=== PATIENT | male | born 1995 | race Caucasian/White ===

== ENCOUNTER 2023-08-16 10:58 | Emergency (ER) | payer OTHER, SELFPAY ==
--- NOTE | ~2023-08-16 | XR_ITS ---
EXAMINATION: XR ankle RT min 3V, XR foot RT min 3V DATE: 08/16/2023 11:24 INDICATION: Post traumatic lateral right foot and ankle pain and swelling TECHNIQUE: 1. Anteroposterior, mortise, additional oblique and lateral view of the right ankle were obtained. 2. Dorsoplantar, two oblique and lateral views of the right foot were obtained. COMPARISON: None. FINDINGS: There is flattening of Boehler's angle with comminuted joint depression type calcaneal fracture. Alig nment appears otherwise normal throughout the right foot and ankle. No other fractures identified. Ot herwise normal joint spaces throughout the right foot and ankle. Lateral side predominant soft tissue swelling about the right ankle and hindfoot. IMPRESSION: 1. Comminuted joint depression type fracture of the right calcaneus. Reviewed, dictated and finalized at location A. IMPRESSION: 1. Comminuted joint depression type fracture of the right calcaneus.
[2023-08-16 11:00] VITALS: BP 144/90; PULSE 115; RESP 16; TEMP 36.4; O2SAT 98
--- NOTE | 2023-08-16 11:05 | ED.LOWEXIN ---
HPI - Extremity Injury (Lower) General Chief Complaint: Extremity Injury, Lower Stated Complaint: right foot injury Time Seen by Provider: 08/16/23 11:04 Source: patient Mode of arrival: ambulatory Limitations: no limitations History of Present Illness HPI Narrative: Gopi is a 28-year-old male patient presenting to the ER today with complaints of right ankle and foot pain after jumping off a ledge that was about 4-5 foot tall. States he landed flat footed however he is having pain to the ankle and foot. Rates the pain currently a 7/10 states his burning and sharp. Pain is constant. He is having difficulty walking due to pain Related Data Allergies Allergy/AdvReac Type Severity Reaction Status Date / Time No Known Drug Allergies Allergy Unknown Unknown Verified 08/16/23 10:59 Review of Systems Review of Systems: Pertinent positives per HPI. Patient denies any fever, chills, rash, headache, visual changes, dizziness, cough, runny nose, sore throat, shortness of breath, chest pain, palpitations, nausea, vomiting, diarrhea, constipation, abdominal pain, or any urinary issues. PMFSH Comments At the time of my signature, I reviewed and agree with the nursing past medical, surgical, social, and family history. There is no relevant family history pertinent to the patient complaint. Exam Narrative: General: Well-developed, well nourished, in no apparent distress Head: Normocephalic, atraumatic. Cardio: Regular rate and rhythm, s1 and s2 normal, no murmur appreciated. Resp: Clear to auscultation bilaterally, no rhonchi, rales, wheezing or rubs. Musculoskeletal: No deformity, tender to palpation over the medial, lateral, and anterior ankle, tender to palpation over the medial, lateral, and anterior foot, tender to palpation over the calcaneus, limited range of motion due to pain, nontender to palpation of the lumbar spine or paraspinous musculature, muscle strength strong and equal, peripheral pulse strong, no edema, no cyanosis, normal gait and station Course Course Emergency Course: Portions of this record may have been created with voice recognition software. Vital Signs Vital signs: Vital Signs Temperature 36.4 C 08/16/23 11:00 Pulse Rate 115 H 08/16/23 11:00 Respiratory Rate 16 08/16/23 11:00 Blood Pressure 144/90 H 08/16/23 11:00 Pulse Oximetry 98 08/16/23 11:00 Oxygen Delivery Room Air 08/16/23 11:00 Temperature 36.7 C 08/16/23 13:19 Pulse Rate 100 08/16/23 13:19 Respiratory Rate 16 08/16/23 13:19 Blood Pressure 147/99 H 08/16/23 13:19 Pulse Oximetry 97 08/16/23 13:19 Oxygen Delivery Room Air 08/16/23 11:00 Vital signs reviewed MDM - Extremity Injury (Lower) MDM Narrative Medical decision making narrative: At the time of visit patient is resting comfortably on the exam table. Patient appears to be nontoxic. Diagnostics: X-rays of right ankle and foot was performed and shows 1. Comminuted joint depression type fracture of the right calcaneus. Medications given: 7.5/325 in [place] given Plan: Posterior OCL with a lot of padding added to the heel, prescription for hydrocodone was sent to the pharmacy. Crutches were given. Orthopedic referral was given to Dr. Carbone. Supportive measures were discussed with the patient and they voiced understanding discharge instructions and agrees to treatment plan. Return precautions reviewed Differential Diagnosis Differential diagnosis: Likely ankle sprain and strain, ankle fracture and other (Calcaneal fracture) Imaging Data Radiologist's impression: ITS Impressions Ankle X-Ray 08/16/23 11:47 IMPRESSION: 1. Comminuted joint depression type fracture of the right calcaneus. Foot X-Ray 08/16/23 11:47 IMPRESSION: 1. Comminuted joint depression type fracture of the right calcaneus. Discharge Plan Discharge Clinical Impression: Fracture of calcaneus, right, closed Qualifiers: Encounter
--- NOTE | 2023-08-16 12:26 | PC.NURSE ---
Pt requesting pain medication. Provider made aware.
[2023-08-16] MEDS: HYDROcodone/acetaminophen (*CRX) 7.5-325 MG TABLET 1 TAB PO (12:49)
[2023-08-16 13:19] VITALS: BP 147/99; PULSE 100; RESP 16; TEMP 36.7; O2SAT 97
== END 2023-08-16 13:32 | disposition home or self-care (01) ==
PROVIDERS: Emergency Provider Nurse Practitioner Family
DX: S92.001A Unspecified fracture of right calcaneus, initial encounter for closed fracture (principal); W17.89XA Other fall from one level to another, initial encounter
CPT/HCPCS: 29515; 73610; 73630; 99284; A9270

== ENCOUNTER 2023-08-21 15:56 | Outpatient (CLI) | payer OTHER, SELFPAY ==
--- NOTE | ~2023-08-21 | CT_ITS ---
EXAMINATION: CT foot RT wo con DATE: 08/21/2023 16:08 INDICATION: Unspecified fracture of right calcaneus. TECHNIQUE: Computed tomography (CT) of the right foot was performed without intravenous contrast. Aut omated exposure control and iterative reconstruction technique were employed. The dose-length product was 306.92 mGy-cm. COMPARISON: Right foot radiographs 08/16/2023 FINDINGS: There is a comminuted fracture of calcaneus with involvement of the posterior subtalar join t and calcaneocuboid joint. A fracture fragment involving the posterior facet laterally demonstrates anterior and medial rotation of the articular surface, depression, and lateral displacement. There is a fracture of the dorsal proximal margin of cuboid. The talar dome is normal. IMPRESSION: 1. Comminuted joint-depression fracture of calcaneus. 2. Impaction fracture of dorsal proximal margin of cuboid. Reviewed, dictated and finalized at location E.
== END 2023-08-21 15:57 ==
LOC: GOSHIMG 15:57
PROVIDERS: PCP Orthopaedic Surgery; Visit Provider Orthopaedic Surgery
DX: S92.001A Unspecified fracture of right calcaneus, initial encounter for closed fracture (principal); S92.211A Displaced fracture of cuboid bone of right foot, initial encounter for closed fracture; X58.XXXA Exposure to other specified factors, initial encounter
CPT/HCPCS: 73700

== ENCOUNTER 2023-08-28 01:32 | Day surgery (SDC) | payer OTHER, SELFPAY ==
[2023-08-24 15:28] VITALS: BMI 34.0
--- NOTE | 2023-08-24 15:31 | PC.NURSE ---
Report to the Outpatient Waiting Room, entrance under the green pavilion located off [facility], at time 0930 on date 08/28/23. Planned Procedure Time: 1130. Time changes happen often and if your time is changed the preop area will call you the afternoon before. - You and your visitor will be asked to self-screen and do not enter if you have any COVID symptoms. - A mask is optional within the hospital at this time. Patients may have clear liquids (water, carbonated beverages, clear teas, apple juice) until 3 hours prior to surgery with a maximum of 20 ounces. - No food from midnight until time of surgery Take the following medications with a SIP of water the morning of surgery: TYLENOL IF NEEDED DO NOT STOP ANY OF YOUR OTHER PRESCRIPTION MEDICATIONS PRIOR TO SURGERY ?EXCEPT THE FOLLOWING Medications to discontinue per physician: N/A Date to take last dose: N/A Please no make-up, nail tuvaluan, hairspray, perfume, deodorant, or body powder the day of surgery. No jewelry (including any body piercings) or valuables the day of surgery, leave them at home. Please take a shower or bath the night before, or the morning of, surgery with an antibacterial soap. Wear comfortable, loose fitting clothing. - Jewelry must be removed prior to entering the operating room. Rings and piercings that are not removed may be cut off. - The hospital will not accept responsibility for valuables. - Please leave all valuables, including medications, at home the day of surgery. If you are going home after surgery, a licensed wheat combine driver must drive you home. - NO public transportation without another adult if you receive anesthesia. - We recommend that an adult stay with you for 24 hours following discharge. - We also recommend that you do not drive, make important decision, drink alcoholic beverages, or take any drugs that were not prescribed by your health care provider for at least 24 hours after your discharge time. Follow any additional instructions given to you from your surgeon. If you or anyone in your household have experienced Covid symptoms in the past week, please notify your surgeon or the nurse liaison at the phone number below for possible testing. Telephone instructions given to PT - TACHO and asked if any additional questions and then verbalized understanding. Patient advised to call surgeon office or pre surgery nurse liaison [phone] if any additional questions.
[2023-08-28] VITALS (8 sets, daily range): BP systolic 120–138; BP diastolic 78–96; PULSE 67–86; RESP 14–22; TEMP 36.2–36.8; O2SAT 95–100
--- NOTE | ~2023-08-28 | XR_ITS ---
XR surgery orthopedic Indication: ORIF right calcaneal fracture TECHNIQUE: Fluoroscopy used during ORIF right calcaneal fracture performed by [Adams Garcia JR MD] on 08/28/2023. 44 seconds with 2 fluoroscopic images captured. FINDINGS: Correlate with procedure note. IMPRESSION: Fluoroscopy used during ORIF right calcaneal fracture. Reviewed, dictated and finalized at location B.
--- NOTE | 2023-08-28 07:12 | WPDHPUPDATE1 ---
History and Physical Update Update Date/Time: 08/28/23 07:12 History and Physical has been reviewed, including an updated exam of the patient. There are NO changes in the patient's condition. Risks, benefits, and alternatives have been discussed and questions answered. Patient agrees to proceed with procedure.
[2023-08-28] MEDS: LACTATED RINGERS 1,000 ML 30 ML IV CONT ×2 (10:15→13:45)
--- NOTE | 2023-08-28 10:31 | P.PNAN_ITS ---
Anes - Initial Pre Proc Eval Procedure: Operation Date: 08/28/23 11:30 Proposed Procedures p Open Reduction Internal Fixation of Calcaneal Fracture Right Foot - Adams Garcia JR, MD Date/Time: 08/28/23 10:31 Surgeon: Adams Garcia JR, MD Pre Op Diagnosis: Calcaneal Fx Rt Foot Patient Data Age: 28 Gender: M Height: 1.77 m Weight: 107.5 kg Last Vital Signs Temp 36.8 C 08/28/23 09:15 Pulse 80 08/28/23 09:15 Resp 16 08/28/23 09:15 BP 137/80 08/28/23 09:15 Pulse Ox 98 08/28/23 09:15 O2 Del Method Room Air 08/28/23 09:15 Allergies Allergy/AdvReac Type Severity Reaction Status Date / Time No Known Drug Allergies Allergy Unknown Unknown Verified 08/24/23 15:26 Home Medications Medication Instructions Recorded Confirmed Type acetaminophen 500 mg tablet 1,000 mg PO QID PRN Pain 08/24/23 08/28/23 History Patient hx anesthesia problems: none Family hx anesthesia problems: none Results Review: All pre-operative results and documents have been reviewed as part of the pre- operative evaluation. [facility] Surgical History Surgical History History of appendectomy 10/2022 Social History Social History Smoking status: Current every day smoker Tobacco type: e-cigarettes/vaping Alcohol intake: current Drinks per week: 12 Alcohol use details: occasionally Substance use: current Substance use type: marijuana Do You Feel Safe in your Home?: Yes Lack of Transportation: No Lack of Food: Never True Current Housing: I Have Housing Concerned About Future Housing: No Difficulty Paying Gas/Electric Bills: No Difficulty Paying for Meds: No Currently Unemployed: No Education: High School Diploma/GED Difficulty w/ Childcare or Family Care: No Living arrangements: alone Occupation/Education: occupation 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 Informed Consent: The patient's anesthetic plan and its attendant risks and benefits were discussed with the patient/family/POA. Questions were solicited and answers provided to the satisfaction of the patient/family/POA.
--- NOTE | 2023-08-28 11:07 | WPDANESPNB ---
Anes - Peripheral Nerve Block Date/Time: 08/28/23 11:07 I have discussed with the patient/family/POA the placement of a peripheral nerve block for post-operative pain management, including associated risks, benefits, complications, and side effects. Alternative methods of post-operative analgesia were detailed. Questions were solicited and answers provided to the satisfaction of the patient/family/POA. Time-Out: A pre-procedural Time-Out was completed immediately before starting the procedure and confirmed: Patient Identification, Site, Procedure, Patient Position and the Availability of Requisite Equipment. Clinical Indications: Acute post-operative pain management requested by the operative surgeon. Nerve Block Insertion Note Anes-nerve block: posterior fossa sciatic right and other (Saphenous right) Patient position: supine Skin prep: chlorhexidine Needle: 22 gauge, stimulating, insulated echogenic needle. Needle length: 80 mm Technique: nerve stimulation lost at (mA) Technique comment: mid 2mg [id number] Injectate: bupivacaine 0.5% with epi 5 mcg/ml (20/10ml no epi) and dexamethasone (mg) (4) Observations: tolerated well Complications: none Procedure start time:: 1059 Procedure end time:: 1105
[2023-08-28] MEDS: ceFAZolin 2 GM/D5W 50 ML 2 GM/50 ML BAG IVPB (11:16)
[2023-08-28] MEDS: fentaNYL CITRATE INJ (*CRX) 100 MCG/2 ML VIAL 25 MCG IV PUSH ×3 (14:16→14:40)
--- NOTE | 2023-08-28 14:33 | W.PM.PROC2 ---
Procedure Note - Detailed Date of Procedure 08/28/23 Pre-op Diagnosis Calcaneal Fracture Right Foot Post-op Diagnosis Same Procedure Performed Open Reduction with internal Fixation of calcaneal fracture right foot Surgeon Adams Garcia JR, DPM Anesthesia General and Regional Indications Joint depression calcaneal fracture with shortening and varus malposition of the tuber of the calcaneus. Description of Procedure Description of Procedure PROCEDURE IN DETAIL:? Under mild sedation, the patient was brought into the operating room, placed on the operating table in the lateral decubitus position.? A pneumatic thigh tourniquet was placed about the patient's ipsilateral limb.? Following general anesthesia and a popliteal fossa block the foot was then scrubbed, prepped, and draped in the usual aseptic manner.? An Esmarch bandage was then used to exsanguinate the patient's? foot and the pneumatic thigh tourniquet was then inflated to 350mmHg. ? Surgery began in the following manner:? Attention was directed to the lateral aspect of the calcaneus where an L shaped incision was made parallel to the Achilles tendo and along the inferior aspect of the calcaneus. A full thickness flap was used to expose the lateral aspect of the calcaneus. The incision was continued deep down through the subcutaneous tissues using sharp and blunt dissection.? All bleeders ligated and cauterized as necessary. I held the flap of tissue retracted with 0.062 smooth K-wires driven into the fibula and lateral talus. Next a 1cm incision was made along the posterior inferior calcaneus and Shanz pin was driven from posterior to anterior into the tuber of the calcaneus. Next the lateral wall blowout was freed from the lateral calcaneus and placed in sterile saline. The Shanz pin was used to reduce the varus calcaneus and restore length. Next a K wire was driven through the calcaneus into the talus. This exposed the posterior facet of the subtalar joint which was fragmented and depressed. It was elevated with a periosteal elevator stabilized with a K wire and the Arthrex Bone sync fast Setting Calcium Phosphate Cement was injected into the void. Next, the lateral wall of the calcaneus was repositioned in its original position and an Arthrex size Medium Calcaneal Perimeter plate was placed along the Lateral calcaneus. Utilizing a 3.5mm Kreulock screw the constant fragment was stabilzed and an Axial Calcaneal view was used to the make sure that good position of the screw was achieved as well as some compression of the fracture line. Next the plate was secured to the calcaneus with ten 3.5 Arthrex Locking screws driven from lateral to medial. A lateral view of the foot showed good positioning of the plates and screws and presybeterian of the calceanal axial view and reduction of the short varus malalignment of the calcaneus. The Shanz pin and 0.062 retraction wires were removed. The wound site was flushed with copious amounts of sterile saline. The stab incision was closed with 2.0 prolene. ? Next, the subcutaneous structured were reapproximated and utilizing 3-0 Vicryl.? Next, the skin was reapproximated and coapted utilizing 4-0 Ethilon suture in simple interrupted suture fashion technique. I externally rotated the limb in order to expose the dorsum of the midfoot. Attention was then directed to the dorsal aspect of the base of the first metatarsal. I made a linear incision just medial to the extensor hallucis longus tendon. Next, I made a capsulotomy and periosteal incision over the base of the first metatarsal and the first metatarsal cuneiform joint. I exposed the base of the first metatarsal, marker was used to [place] the are 2.0cm distal to the first metatarsal cuneiform joint. At this point I made an osteotomy along the dorsal aspect of the base of the first metatarsal perpendicular to the long axis of the first metatarsal and a second oblique cut to resect a 3mm wedge from the dorsal aspect of th
[2023-08-28] MEDS: oxyCODONE HCL (*CRX) 5 MG TAB IR PO (15:17)
== END 2023-08-28 16:00 | disposition home or self-care (01) ==
PROVIDERS: PCP Family Medicine; Visit Provider Podiatrist Foot & Ankle Surgery
PROC: (CPT 28415; principal; 2023-08-28 11:30)
DX: S92.001A Unspecified fracture of right calcaneus, initial encounter for closed fracture (principal); X50.0XXA Overexertion from strenuous movement or load, initial encounter; G89.18 Other acute postprocedural pain; F17.290 Nicotine dependence, other tobacco product, uncomplicated; F12.90 Cannabis use, unspecified, uncomplicated; E66.9 Obesity, unspecified; Z68.34 Body mass index [BMI] 34.0-34.9, adult
CPT/HCPCS: 28415; 64450; 64445; 99199; A9270; J0690; J1100; J2250; J2405; J2704; J3010; J7120

== ENCOUNTER 2024-02-02 05:21 | Emergency (ER) | payer SELFPAY ==
--- NOTE | ~2024-02-02 | US_ITS ---
Limited Abdominal Sonogram: Real-time sonographic imaging of the right upper quadrant was performed. Clinical History: Right upper quadrant pain Findings: The liver appears normal with no evidence of mass lesion or bile duct dilatation. Main por dena vein demonstrates normal direction of flow. The gallbladder is well distended, and measures an ec hogenic shadowing gallstone near the gallbladder neck. No gallbladder wall thickening. The common chucho e duct measures 4 mm. The visualized pancreas, aorta, and IVC are unremarkable. Impression: Cholelithiasis. Reviewed, dictated and finalized at location M. Impression: Cholelithiasis.
--- NOTE | ~2024-02-02 | CT_ITS ---
Clinical Indication: Chest pain, abdominal pain CT Scan of the Chest, Abdomen, and Pelvis with Contrast: Technique: Contiguous sections were acquired throughout the chest, abdomen, and pelvis after intraven ous administration of 100 cc of Omnipaque 350. Dose reduction technique was used on this scan by radha whalen automated exposure control and iterative reconstruction technique. The dose-length product (DL P) was 1242.16 mGy-cm. Findings: There is no evidence of any significant mediastinal, hilar or axillary lymphadenopathy. The mediastin al soft tissues and vascular structures appear normal. No pulmonary embolus seen. No aortic aneurysm or dissection. There is no evidence of pleural or pericardial effusion. The lungs are clear. No pulmonary nodules or infiltrates are noted. The liver, spleen, pancreas, gallbladder, adrenals and kidneys are within normal limits. No evidence of aortic aneurysm or dissection. No lymphadenopathy. No bowel obstruction or bowel wall thickening. There is no evidence to suggest acute appendicitis. Urinary bladder is unremarkable. No pelvic mass seen. No ascites. Impression: No significant abnormalities seen. Reviewed, dictated and finalized at [facility]. Impression: No significant abnormalities seen.
--- NOTE | ~2024-02-02 | XR_ITS ---
Portable chest x-ray Comparison: None Clinical History: Chest pain Findings: Lungs are clear, without focal consolidation or pleural effusion. Cardiomediastinal silho uette is unremarkable. Bones and soft tissues are unremarkable. Impression: Normal chest. Reviewed, dictated and finalized at location M. Impression: Normal chest.
--- NOTE | 2024-02-02 05:28 | ECG_ITS ---
Test Date: 2024-02-02 05:32:13 Measurements Intervals [place] Rate: 53 P: 19 NM: 143 QRS: 31 QRSD: 98 T: 34 QT: 383 QTc: 359 Interpretive Statements SINUS BRADYCARDIA WITH SINUS ARRHYTHMIA INCOMPLETE RIGHT BUNDLE BRANCH BLOCK BASELINE WANDER- II, III, AVL, AVF, V1-V6 BORDERLINE ECG No previous ECG available for comparison Electronically Signed On 02-02-2024 06:36:15 CDT by Ean Zeng D.O.
[2024-02-02 05:33] VITALS: BP 150/84; PULSE 56; RESP 16; TEMP 36.4; O2SAT 100
[2024-02-02 05:48] LABS: Basophils Absolute Auto 0.1 K/mm3 (0.0-0.1); Basophils Percent Auto 0.8 % (0.2-1.2); Eosinophils Absolute Auto 0.1 K/mm3 (0-0.3); Eosinophils Percent Auto 1.5 % (0-4.4); Hematocrit 46.1 % (42.0-52.0); Hemoglobin 15.8 g/dL (14.0-18.0); Immature Granulocyte Absolute 0.04 K/mm3 (0.00-0.031); Immature Granulocyte Percent A 0.5 % (0-0.5); Lymphocytes Percent Auto 18.9 % (18.3-44.2); Mean Corpuscular HGB Conc 34.3 g/dl (32-36); Mean Corpuscular Hemoglobin 30.4 pg (26-34); Mean Corpuscular Volume 88.7 fl (80-100); Mean Platelet Volume 11.1 fl (7.4-10.4); Monocytes Absolute Auto 0.8 K/mm3 (0.1-0.6); Monocytes Percent Auto 9.1 % (2.6-8.5); Neutrophils Absolute Auto 5.9 K/mm3 (1.3-6.7); Neutrophils Percent Auto 69.2 % (45.5-73.1); Platelet Count Result 166 k/mm3 (150-375); Red Cell Distribution Width 12.7 % (11.5-14.5); White Blood Count 8.5 K/mm3 (4.5-10.0)
[2024-02-02 05:59] LABS: INR 0.9; Prothrombin Time 12.4 Seconds (11.1-14.7)
[2024-02-02 06:00] LABS: Partial Thromboplastin Time 22.7 Seconds (22.3-36.8)
[2024-02-02 06:06] LABS: Alanine Aminotransferase 31 U/L (6-50); Albumin Level 4.5 g/dL (3.5-5.1); Alkaline Phosphatase 84 U/L (38-126); Anion Gap 10 mmol/L (4-12); Aspartate Amino Transferase 27 U/L (17-59); Bilirubin,Total 0.3 mg/dL (0.2-1.3); Blood Urea Nitrogen 15 mg/dL (9-20); Calcium 9.9 mg/dL (8.4-10.2); Carbon Dioxide 27 mmol/L (22-30); Chloride 106 mmol/L (98-107); Estimated CRCL calculation 106 ml/min; Estimated Glomerular Filt Rate > 60; Glucose 115 mg/dL (65-110); Lipase 57 U/L (23-300); Potassium 4.4 mmol/L (3.4-5.0); Sodium 143 mmol/L (137-145)
[2024-02-02] MEDS: KETOROLAC 15 MG/ML VIAL (*BKC) IV PUSH (06:06)
[2024-02-02] MEDS: FAMOTIDINE 20 MG/2 ML VIAL IV PUSH (06:06)
[2024-02-02] MEDS: HYDROmorphone HCL INJ (*CRX) 1 MG/ML SYR 0.5 MG IV PUSH (06:07)
[2024-02-02] MEDS: SODIUM CHLORIDE 0.9% IV 2,000 ML 999 ML IV CONT (06:08)
[2024-02-02 06:17] LABS: Troponin I < 0.012 ng/mL (0.000-0.034)
--- NOTE | 2024-02-02 06:20 | ED.GENADULT ---
HPI - General Adult General Chief complaint: Chest Pain <Martir Davidson MD - Last Filed: 02/02/24 06:21> Stated complaint: chest pain <Martir Davidson MD - Last Filed: 02/02/24 06:21> Time Seen by Provider: 02/02/24 05:30 <Martir Davidson MD - Last Filed: 02/02/24 06:21> History of Present Illness HPI narrative: This is a 28-year-old male presenting ED with chief complaint of right-sided chest and abdominal pain. Patient says at 1:00 a.m. he was woken up from sleep a stabbing pain that is in the right lower chest/right upper abdomen. Says it radiates to his back. Is 10 out 10 intensity and is constant and getting worse. He has never had pain like this before there are no alleviating or exacerbating factors. It is associated with nausea and vomiting. Patient had ribs for dinner last night. No history of biliary colic. No fevers chills diarrhea. <Martir Davidson MD - Last Filed: 02/02/24 06:21> Related Data Home medications: Home Medications Medication Instructions Recorded Confirmed acetaminophen 500 mg tablet 1,000 mg PO QID PRN Pain 08/24/23 08/28/23 <Martir Davidson MD - Last Filed: 02/02/24 06:21> Allergies/adverse reactions: Allergies Allergy/AdvReac Type Severity Reaction Status Date / Time No Known Drug Allergies Allergy Unknown Unknown Verified 08/24/23 15:26 <Martir Davidson MD - Last Filed: 02/02/24 06:21> [facility] Surgical History Surgical History: Surgical History History of appendectomy 10/2022 <Martir Davidson MD - Last Filed: 02/02/24 06:21> Social History Social History: Social History Smoking status: Current every day smoker Tobacco type: e-cigarettes/vaping Alcohol intake: current Drinks per week: 12 Alcohol use details: occasionally Substance use: current Substance use type: marijuana Do You Feel Safe in your Home?: Yes Lack of Transportation: No Lack of Food: Never True Current Housing: I Have Housing Concerned About Future Housing: No Difficulty Paying Gas/Electric Bills: No Difficulty Paying for Meds: No Currently Unemployed: No Education: High School Diploma/GED Difficulty w/ Childcare or Family Care: No Living arrangements: alone Occupation/Education: occupation 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 Head: atraumatic. EYES: EOMI, NOSE: Atraumatic NECK: Trachea midline RESPIRATORY: No increased rate of breathing CARDIOVASCULAR: RRR, ABDOMINAL: Non-distended MUSCULOSKELETAl: No obvious deformities NEURO: Alert. Moving 4/4 extremities SKIN:: Warm, dry. Normal color PSYCHIATRIC: Normal affect <Martir Davidson MD - Last Filed: 02/02/24 06:21> Course Vital Signs Vital signs: Vital Signs Temperature 97.6 F 02/02/24 05:33 Pulse Rate 56 L 02/02/24 05:33 Respiratory Rate 16 02/02/24 05:33 Blood Pressure 150/84 H 02/02/24 05:33 Pulse Oximetry 100 02/02/24 05:33 Oxygen Delivery Room Air 02/02/24 05:33 Temperature 97.6 F 02/02/24 05:33 Pulse Rate 60 02/02/24 08:22 Respiratory Rate 14 02/02/24 07:04 Blood Pressure 156/86 H 02/02/24 07:04 Pulse Oximetry 99 02/02/24 08:23 Oxygen Delivery Room Air 02/02/24 08:23 <Martir Davidson MD - Last Filed: 02/02/24 06:21> Vital Signs Temperature 97.6 F 02/02/24 05:33 Pulse Rate 56 L 02/02/24 05:33 Respiratory Rate 16 02/02/24 05:33 Blood Pressure 150/84 H 02/02/24 05:33 Pulse Oximetry 100 02/02/24 05:33 Oxygen Delivery Room Air 02/02/24 05:33 Temperature 97.6 F 02/02/24 05:33 Pulse Rate 60 02/02/24 08:22 Respiratory Rate 14 02/02/24 07:04 Blood Pressure 156/86 H 02/02/24 07:04 Pulse Oximet
[2024-02-02 07:03] VITALS: O2SAT 100
[2024-02-02 07:04] VITALS: BP 156/86; PULSE 61; RESP 14; O2SAT 100
[2024-02-02 08:22] VITALS: PULSE 60
[2024-02-02 08:23] VITALS: O2SAT 99
--- NOTE | 2024-02-02 08:31 | PC.NURSE ---
Pt reports no pain, IV fluids infusing. Dr. Woodward at bedside discussing POC
[2024-02-02 08:42] VITALS: BP 108/72; PULSE 60; RESP 18; TEMP 36.5; O2SAT 97
[2024-02-02 08:48] LABS: Amphetamine Screen Urine Negative (Negative); Barbiturate Screen Urine Negative (Negative); Benzodiazepines Screen Urine Negative (Negative); Cannabinoid Screen Urine Positive (Negative); Cocaine Screen Urine Negative (Negative); Methadone Screen Urine Negative (Negative); Opiate Screen Urine Negative (Negative); Phencyclidine Screen Urine Negative (Negative)
[2024-02-02 09:00] LABS: Troponin I < 0.012 ng/mL (0.000-0.034)
== END 2024-02-02 08:45 | disposition home or self-care (01) ==
PROVIDERS: Emergency Medicine; Emergency Provider Emergency Medicine; PCP Family Medicine
DX: K80.20 Calculus of gallbladder without cholecystitis without obstruction (principal); F17.290 Nicotine dependence, other tobacco product, uncomplicated
CPT/HCPCS: 36415; 71045; 71275; 74174; 76705; 80053; 80307; 83690; 84484; 85025; 85610; 85730; 93005; 96361; 96374; 96375; 99284; J1170; J1885; J7030; Q9967